=== PATIENT | female | born 1965 | race Caucasian/White ===

== ENCOUNTER 2016-09-15 14:53 | Emergency (ER) | payer MEDICARE, MEDICAID ==
[2016-09-15 15:13] VITALS: BP 129/84
== END 2016-09-15 15:42 | disposition left against medical advice (07) ==
LOC: ER 14:53
DX: R21 Rash and other nonspecific skin eruption (principal)

== ENCOUNTER 2016-09-17 22:00 | Emergency (ER) | payer MEDICARE, MEDICAID ==
--- NOTE | 2016-09-17 23:16 | ED Physician Chart ---
Chief Complaint/HPI - Patient Information Date Seen:: 09/17/16 Time Seen:: 22:22 Chief Complaint:: rashes History of Present Illness:: THIS IS A 50 YO FEMALE IS HERE WITH CONCERN ABOUT A RASH ON HER FACE AND LEFT FOREARM. STATES THAT HER DOCTOR WANT HER TO BE HOSPITALIZED FOR TREATMENT BECAUSE THE RASH IS NOT GOING AWAY AND HE WANT TO GIVE HER A SPECIAL TREATMENT FOR HER RASHES. Allergies:: Allergies Allergy/AdvReac Type Severity Reaction Status Date / Time No Known Allergies Allergy Verified 09/17/16 22:45 Vitals:: Vital Signs - 8 hr 09/17/16 22:15 Temp 98.2 F HR 62 RR 18 BP 124/75 O2 Sat % 96 Historian:: Patient Review:: Nurse's Note Reviewed Review of Systems - Review of Systems General/Constitutional: No fever, No chills, No weight loss, No weakness, No diaphoresis, No edema, No loss of appetite Skin: No skin lesions, Rash, No bruising Head: No headache, No light-headedness Eyes: No loss of vision, No pain, No diplopia ENT: No earache, No nasal drainage, No sore throat, No tinnitus Neck: No neck pain, No swelling, No thyromegaly, No stiffness, No mass noted Cardio Vascular: No chest pain, No palpitations, No PND, No orthopnea, No edema Pulmonary: No SOB, No cough, No sputum, No wheezing GI: No nausea, No vomiting, No diarrhea, No pain, No melena, No hematochezia, No constipation, No hematemesis G/U: No dysuria, No frequency, No hematuria Musculoskeletal: No bone or joint pain, No back pain, No muscle pain Endocrine: No polyuria, No polydipsia Psychiatric: No prior psych history, No depression, No anxiety, No suicidal ideation Hematopoietic: No bruising, No lymphadenopathy Allergic/Immuno: No urticaria, No angioedema Neurological: No syncope, No focal symptoms, No weakness, No paresthesia, No headache, No seizure, No dizziness, No confusion, No vertigo Past Medical History - Past Medical History Obtainable: Yes Past Medical History: Arthritis, Other (DEPRESSION) Social History: Smoker, No Alcohol, Illicit Drug Use Surgical History: other (TONSILLECTOMY) Family Medical History - Family Member Mother History Unknown: Yes Living Status: Still Living Hx Family Coronary Artery Disease: No Hx Family Congestive Heart Failure: No Hx Family Hypertension: No Hx Family Stroke: No Hx Family Diabetes: No Hx Family AIDS: No Hx Family HIV: No Hx Family COPD: No Hx Family Psychiatric Problems: No Labs/Radiology/EKG Results - Lab Results Results: Abnormal Lab Results 09/17/16 09/17/16 09/17/16 23:05 23:05 23:05 WBC 8.3 D RBC 4.63 Hgb 13.9 Hct 41.0 MCV 88.5 MCH 30.0 MCHC Differential 33.8 RDW 13.2 Plt Count 198 MPV 8.8 Neutrophils % 45.0 Lymphocytes % 35.2 Monocytes % 8.5 Eosinophils % 11.3 H Basophils % 0.0 PT 9.2 L INR 0.89 Sodium Potassium Chloride Carbon Dioxide Anion Gap BUN Creatinine Est GFR ( Amer) Est GFR (Non-Af Amer) BUN/Creatinine Ratio Glucose Calcium Total Bilirubin AST ALT Alkaline Phosphatase Troponin I Total Protein Albumin Globulin Albumin/Globulin Ratio Triglycerides 124 Cholesterol 186 LDL Cholesterol Direct 118 HDL Cholesterol 57 Urine Source Urine Color Urine Clarity Urine pH Ur Specific Varnell Urine Protein Urine Glucose (UA) Urine Ketones Urine Blood Urine Nitrate Urine Bilirubin Urine Urobilinogen Ur Leukocyte Esterase Urine RBC Urine WBC Ur Epithelial Cells Urine Bacteria Urine Opiates Screen Urine Methadone Screen Ur Barbiturates Screen Ur Tricyclics Screen Ur Phencyclidine Scrn Amphetamines Screen U Methamphetamines Scrn U Benzodiazepines Scrn U Cocaine Metab Screen U Cannabinoids Screen 09/17/16 09/17/16 09/17/16 23:05 23:05 23:15 WBC RBC Hgb Hct MCV MCH MCHC Differential RDW Plt Count MPV Neutrophils % Lymphocytes % Monocytes % Eosinophils % Basophils % PT INR Sodium 135 L Potassium 3.9 Chloride 104 Carbon Dioxide 23.4 Anion Gap 11.5 BUN 12 Creatinine 0.7 Est GFR ( Amer) > 60.0 Est GFR (Non-Af Amer) > 60.0 BUN/Creatinine Ratio 17.1 Glucose 100 Calcium 9.8 Total Bilirubin 0.3 AST 30 ALT 49 Alkaline Phosphatase 45 Troponin I 0.01 Total Protein 7.2 Albumin 4.2 Globulin 3.0 Albumin/Globulin Ratio 1.4 Triglycerides Cholesterol LDL Cholesterol Direct HDL Cholesterol Urine Source CLEAN C Urine Color YELLOW Urine Clarity CLEAR Urine pH 6.0 Ur Specific Varnell 1.015 Urine Protein NEGATIVE Urine Glucose (UA) NEGATIVE Urine Ketones NEGATIVE Urine Blood NEGATIVE Urine Nitrate NEGATIVE Urine Bilirubin NEGATIVE Urine Urobilinogen 0.2 Ur Leukocyte Esterase NEGATIVE Urine RBC NONE SEEN Urine WBC 0-2 Ur Epithelial Cells RARE Urine Bacteria NONE SEEN Urine Opiates Screen Urine Methadone Screen Ur Barbiturates Screen Ur Tricyclics Screen Ur Phencyclidine Scrn Amphetamines Screen U Methamphetamines Scrn U Benzodiazepines Scrn U Cocaine Metab Screen U Cannabinoids Screen 09/17/16 23:15 WBC RBC Hgb Hct MCV MCH MCHC Differential RDW Plt Count MPV Neutrophils % Lymphocytes % Monocytes % Eosinophils % Basophils % PT INR Sodium Potassium Chloride Carbon Dioxide Anion Gap BUN Creatinine Est GFR ( Amer) Est GFR (Non-Af Amer) BUN/Creatinine Ratio Glucose Calcium Total Bilirubin AST ALT Alkaline Phosphatase Troponin I Total Protein Albumin Globulin Albumin/Globulin Ratio Triglycerides Cholesterol LDL Cholesterol Direct HDL Cholesterol Urine Source Urine Color Urine Clarity Urine pH Ur Specific Varnell Urine Protein Urine Glucose (UA) Urine Ketones Urine Blood Urine Nitrate Urine Bilirubin Urine Urobilinogen Ur Leukocyte Esterase Urine RBC Urine WBC Ur Epithelial Cells Urine Bacteria Urine Opiates Screen NEGATIVE Urine Methadone Screen NEGATIVE Ur Barbiturates Screen NEGATIVE Ur Tricyclics Screen NEGATIVE Ur Phencyclidine Scrn NEGATIVE Amphetamines Screen NEGATIVE U Methamphetamines Scrn NEGATIVE U Benzodiazepines Scrn NEGATIVE U Cocaine Metab Screen NEGATIVE U Cannabinoids Screen POSITIVE H ED Septic Shock - . Is Septic Shock (SBP<90, OR Lactate>4 mmol\L) present?: No - <6hrs of presentation: Vital Signs: Vital Signs - 8 hr 09/17/16 22:15 Temp 98.2 F HR 62 RR 18 BP 124/75 O2 Sat % 96 Reassessment (Disposition) - Reassessment Reassessment Condition:: Unchanged - Diagnosis Diagnosis:: RASH - Aftercare/Follow up Instructions Aftercare/Follow-Up Instructions:: Counseled pt regarding lab results/diagnosis & need follow up, Refer to Discharge Instructions, Counseled pt & family regarding lab results/diagnosis & need follow up - Patient Disposition Discharge/Transfer:: Home Condition at Disposition:: Unchanged
[2016-09-17 23:29] LABS: % EOSINOPHILS 11.3 % (0.0-5.0); % LYMPHOCYTES 35.2 % (20.0-50.0); % MONOCYTES 8.5 % (2.0-10.0); HEMOGLOBIN 13.9 gm/dL (11.7-15.5); MEAN CELL VOLUME 88.5 fl (81-100); MEAN CORPUSCULAR HGB CONC 33.8 pg (28.0-36.0); MEAN PLATELET VOLUME 8.8 fl; NEUTROPHILE ABSOLUTE 3.8 Th/cmm (1.8-8.0); PLATELET COUNT 198 Th/cmm (150-400); RED BLOOD COUNT 4.63 Mil/cmm (3.80-5.10); RED CELL DISTRIBUTION WIDTH 13.2 % (11.5-20.0)
[2016-09-17 23:34] LABS: WHITE BLOOD COUNT 8.3 Th/cmm (4.8-10.8)
[2016-09-17 23:38] LABS: INR 0.89 (0.5-1.4); PROTHROMBIN TIME (TEST) 9.2 SECONDS (9.5-11.5)
[2016-09-17 23:41] LABS: ALB/GLOB RATIO 1.4 (1.0-1.8); ALKALINE PHOSPHATASE 45 U/L (34-104); ANION GAP 11.5 (7.0-16.0); BILIRUBIN,TOTAL 0.3 mg/dL (0.3-1.0); BUN - UREA NITROGEN 12 mg/dL (7-25); BUN/CREATININE RATIO 17.1; CALCIUM SERUM 9.8 mg/dL (8.6-10.3); CARBON DIOXIDE 23.4 mEq/L (21.0-31.0); CHLORIDE 104 mEq/L (98-107); CREATININE - SERUM 0.7 mg/dL (0.6-1.2); GLUCOSE 100 mg/dL (70-105); POTASSIUM SERUM 3.9 mEq/L (3.5-5.1); SGOT 30 U/L (13-39); SGPT/ALT 49 U/L (7-52); SODIUM SERUM 135 mEq/L (136-145)
[2016-09-17 23:42] LABS: URINE BILIRUBIN NEGATIVE (NEGATIVE); URINE BLOOD NEGATIVE (NEGATIVE); URINE COLOR YELLOW; URINE GLUCOSE (UA) NEGATIVE (NEGATIVE); URINE KETONE NEGATIVE (NEGATIVE); URINE PROTEIN NEGATIVE (NEGATIVE); URINE UROBILINOGEN 0.2 E.U./dL (0.2 - 1.0)
[2016-09-17 23:42] LABS: CHOLESTEROL 186 mg/dL (<200); TRIGLYCERIDES 124 mg/dL (<150)
[2016-09-17 23:43] LABS: URINE BACTERIA NONE SEEN /hpf (NONE SEEN); URINE EPITHELIAL CELLS RARE /lpf (FEW); URINE RBC NONE SEEN /hpf (0-5); URINE WBC 0-2 /hpf (0-5)
[2016-09-17 23:47] LABS: AMPHETAMINE URINE NEGATIVE (NEGATIVE); BARBITURATES URINE NEGATIVE (NEGATIVE)
[2016-09-17 23:48] LABS: METHADONE URINE NEGATIVE (NEGATIVE)
== END 2016-09-18 00:35 | disposition home or self-care (01) ==
LOC: ER 22:00
DX: R21 Rash and other nonspecific skin eruption (principal); F17.200 Nicotine dependence, unspecified, uncomplicated
CPT/HCPCS: 36415-UA; 80053-TC; 80061-TC; 81001-TC; 84443-TC; 84484-TC; 85025-TC; 85610-TC; 86592-TC; Z7502

== ENCOUNTER 2016-10-26 10:03 | Emergency (ER) | payer MEDICARE, MEDICAID ==
--- NOTE | 2016-10-26 10:05 | ED Physician Chart ---
Chief Complaint/HPI - Patient Information Date Seen:: 10/26/16 Time Seen:: 10:04 Chief Complaint:: skin infection History of Present Illness:: 51-year-old female with chronic, constant, moderate to severe, dermatitis of the left chin area 2-3 months. Says she's been taking penicillin but the symptoms have persisted. Have associated pain of the left chin area. Ears, chest pain or palpitations, nausea, vomiting, headache, changes, numbness or tingling. Allergies:: Allergies Allergy/AdvReac Type Severity Reaction Status Date / Time No Known Allergies Allergy Verified 09/17/16 22:45 Historian:: Patient Review:: Nurse's Note Reviewed Review of Systems - Review of Systems Other: Complete system review otherwise unremarkable except as noted in history of present illness. Past Medical History - Past Medical History Past Medical History: Other (chronic dermatitis of the face, DJD, depression) Family History: None Social History: Non Smoker, No Alcohol, No Drug Use Surgical History: None Psychiatricy History: Depression Medication: Reviewed Family Medical History - Family Member Mother History Unknown: Yes Living Status: Still Living Hx Family Coronary Artery Disease: No Hx Family Congestive Heart Failure: No Hx Family Hypertension: No Hx Family Stroke: No Hx Family Diabetes: No Hx Family AIDS: No Hx Family HIV: No Hx Family COPD: No Hx Family Psychiatric Problems: No Physical Exam - Physical Examination Other:: INITIAL VITAL SIGNS: Reviewed by me GENERAL: Alert and interactive. No acute distress HEAD: Head is normocephalic and atraumatic EYES: EOMI. PERRL. No scleral icterus. No conjunctival injection ENT: Moist mucous membranes. NECK: Supple. No masses. Full range of motion RESPIRATORY: No tachypnea. Clear breath sounds bilaterally. No wheezing, rales, or rhonchi CV: Regular rate and rhythm. No murmurs, rubs, or gallops ABDOMEN: Soft, non-distended, non-tender. No guarding. No rebound. No masses. EXTREMITIES: No deformity. No cyanosis. No edema. SKIN: 3 x 4 cm area of scabbed and opened superficial lesion of the left chin area. Consistent with erysipelas. No surrounding erythema. NEUROLOGIC: Alert and oriented. Face is symmetric. Speech is normal. Moves all extremities equally. Motor and sensory distally intact. Labs/Radiology/EKG Results - Lab Results Results: Lab Results 10/26/16 Range/Units 10:25 WBC 5.8 D (4.8-10.8) Th/cmm RBC 4.51 (3.80-5.10) Mil/cmm Hgb 13.6 (11.7-15.5) gm/dL Hct 39.6 (35.0-45.0) % MCV 87.9 (81-100) fl MCH 30.1 (27.0-31.0) pg MCHC Differential 34.2 (28.0-36.0) pg RDW 12.4 (11.5-20.0) % Plt Count 215 (150-400) Th/cmm MPV 8.4 fl Neutrophils % 43.2 (40.0-80.0) % Lymphocytes % 34.3 (20.0-50.0) % Monocytes % 9.9 (2.0-10.0) % Eosinophils % 11.7 H (0.0-5.0) % Basophils % 0.9 (0.0-2.0) % Vital Signs Temp 98.2 F 10/26/16 10:15 HR 78 10/26/16 10:15 RR 16 10/26/16 10:15 BP 130/73 10/26/16 10:15 O2 Sat % 97 10/26/16 10:15 Temp 98.2 F 10/26/16 10:15 HR 78 10/26/16 10:15 RR 16 10/26/16 10:15 BP 130/73 10/26/16 10:15 O2 Sat % 97 10/26/16 10:15 ED Septic Shock - . Is Septic Shock (SBP<90, OR Lactate>4 mmol\L) present?: No Reassessment (Disposition) - Reassessment Reassessment:: The patient with chronic erysipelas infection of the chin. Has been taking penicillin but symptoms have persisted. Blood work is essentially unremarkable. Gave IM Rocephin 1 g. We will give prescription for mupirocin topical antibiotic and Augmentin 500 mg twice a day 10 days. Recommend follow- up with primary care 1-2 days. Return to ER precautions given. Patient says she understands and agrees the plan. Blood pressure was noted to be elevated over 120/80. There were no signs of hypertension. Discussed the findings with the patient and recommended that the patient follow up with the primary care physician regarding the elevated blood pressure. Reassessment Condition:: Improved - Diagnosis Diagnosis:: Erysipelas of the face Elevated blood pressure without diagnosis of hypertension - Aftercare/Follow up Instructions Aftercare/Follow-Up Instructions:: Counseled pt regarding lab results/diagnosis & need follow up Medication Prescribed:: Mupirocin Augmentin - Patient Disposition Discharge/Transfer:: Home Time:: 10:55 Condition at Disposition:: Improved ED Discharge Plan - Patient Disposition Admit/Discharge/Transfer: PT DISCHARGED HOME Condition at Disposition: Improved Instructions: Erysipelas
[2016-10-26] MEDS ORDERED: Bacitracin pkt 1 gm Pkt TP STA (10:19)
[2016-10-26 10:42] LABS: % BASOPHILS 0.9 % (0.0-2.0); % EOSINOPHILS 11.7 % (0.0-5.0); % LYMPHOCYTES 34.3 % (20.0-50.0); % MONOCYTES 9.9 % (2.0-10.0); % NEUTROPHILS 43.2 % (40.0-80.0); HEMATOCRIT 39.6 % (35.0-45.0); HEMOGLOBIN 13.6 gm/dL (11.7-15.5); MEAN CELL VOLUME 87.9 fl (81-100); MEAN CORPUSCULAR HEMOGLOBIN 30.1 pg (27.0-31.0); MEAN CORPUSCULAR HGB CONC 34.2 pg (28.0-36.0); MEAN PLATELET VOLUME 8.4 fl; NEUTROPHILE ABSOLUTE 2.4 Th/cmm (1.8-8.0); PLATELET COUNT 215 Th/cmm (150-400); RED BLOOD COUNT 4.51 Mil/cmm (3.80-5.10); RED CELL DISTRIBUTION WIDTH 12.4 % (11.5-20.0); WHITE BLOOD COUNT 5.8 Th/cmm (4.8-10.8)
[2016-10-26] MEDS ORDERED: Bacitracin pkt 1 gm Pkt TP ONE (10:53)
[2016-10-26 10:56] LABS: ALB/GLOB RATIO 1.4 (1.0-1.8); ALKALINE PHOSPHATASE 43 U/L (34-104); ANION GAP 6.7 (7.0-16.0); BILIRUBIN,TOTAL 0.3 mg/dL (0.3-1.0); BUN - UREA NITROGEN 9 mg/dL (7-25); CALCIUM SERUM 9.2 mg/dL (8.6-10.3); CARBON DIOXIDE 23.8 mEq/L (21.0-31.0); CHLORIDE 109 mEq/L (98-107); CREATININE - SERUM 0.6 mg/dL (0.6-1.2); GLUCOSE 109 mg/dL (70-105); POTASSIUM SERUM 3.5 mEq/L (3.5-5.1); SGOT 29 U/L (13-39); SGPT/ALT 49 U/L (7-52); SODIUM SERUM 136 mEq/L (136-145)
== END 2016-10-26 11:05 | disposition home or self-care (01) ==
LOC: ER 10:03
DX: A46 Erysipelas (principal); R03.0 Elevated blood-pressure reading, without diagnosis of hypertension
CPT/HCPCS: 99285; 96372 ×2; 93005; 36415; 83605; 85025; 80053; 87040 ×2; Z7610; J1885; J0696